=== PATIENT | male | born 1970 | race Caucasian/White ===

== ENCOUNTER 2022-01-17 11:05 | Emergency (ER) | payer OTHER ==
[2022-01-17 11:27] VITALS: BMI 29.2
[2022-01-17] MEDS ORDERED: ACETAMINOPHEN 500 MG TABLET (FP) PO ONE (11:46)
[2022-01-17] MEDS ORDERED: ACETAMINOPHEN 325 MG TABLET (FP) ONE (11:59)
[2022-01-17] MEDS ORDERED: morphine SULFATE 4 MG/ML VIAL IVPUSH ONE (14:51)
[2022-01-17 15:42] LABS: BASO % 0.7 % (0-2.0); EOS % 0.5 % (0-4.5); HEMATOCRIT 43.6 % (35.4-49); HEMOGLOBIN 14.8 GM/dL (11.7-16.9); LYMPH % 18.3 % (8-40); MCH 30.1 pg (25.7-33.7); MCHC 33.8 g/dl (32.0-35.9); MEAN PLT VOLUME 7.4 fl (7.5-11.1); MONO % 16.8 % (3.8-10.2); NEUT % 63.7 % (42.8-82.8); PLATELET COUNT 265 10^3/uL (134-434); RDW 15.7 % (11.9-15.9); WHITE BLOOD COUNT 4.3 K/mm3 (4.0-10.0)
[2022-01-17 15:49] LABS: INR 1.49 (0.83-1.09); PROTHROMBIN TIME (PATIENT) 17.2 SEC (9.7-13.0)
[2022-01-17 15:52] LABS: ACTIVATED PTT 36.8 SECONDS (25.2-36.5)
[2022-01-17] MEDS ORDERED: PROPOFOL 200 MG/20 ML VIAL IVPUSH ONE ×2 (16:01→19:00)
[2022-01-17] MEDS ORDERED: morphine CARPU-JECT 4 MG/1 ML DISP.SYRIN IVPUSH ONE ×2 (16:02→22:23)
[2022-01-17 16:11] LABS: ALBUMIN 3.1 g/dl (3.4-5.0); CALCIUM 8.3 mg/dL (8.5-10.1)
[2022-01-17 16:14] LABS: CREATININE 0.9 mg/dL (0.55-1.3)
[2022-01-17 16:16] LABS: BILIRUBIN,TOTAL 0.4 mg/dL (0.2-1); TOT PROT 6.5 g/dl (6.4-8.2)
[2022-01-17] MEDS ORDERED: morphine SULFATE 4 MG/ML VIAL ONE ×2 (16:32→22:16)
[2022-01-17] MEDS ORDERED: LACTATED RINGERS SOLUTION 1000 ML INFUS.BAG IV ONE (17:34)
[2022-01-17] MEDS ORDERED: PROPOFOL 20 ML ONE ×2 (18:10→18:49)
[2022-01-17 19:20] VITALS: RESP 20
[2022-01-17 22:09] VITALS: BP 145/85; PULSE 87; TEMP 98.2
== END 2022-01-17 22:15 | disposition short-term general hospital (02) ==
LOC: JER 11:05
PROC: 3E033GC Introduction of Other Therapeutic Substance into Peripheral Vein, Percutaneous Approach (ICD-10-PCS; principal; 2022-01-17)
DX: T84.021A Dislocation of internal left hip prosthesis, initial encounter (principal)
CPT/HCPCS: 36415; 70450-TC; 71045-TC-FY; 72125-TC; 72170-TC-FY; 72192-TC; 73700-TC-RT; 80053; 82550; 84484; 85025; 85610; 85730; 86850; 86900; 86901; 93005; 93010; 99285-25; C9803-CS; U0003; U0005

== ENCOUNTER 2024-04-25 15:00 | Inpatient (IN) | payer OTHER ==
[2024-04-25 15:37] VITALS: BMI 24.5
[2024-04-25] MEDS ORDERED: MAGNESIUM HYDROX 2400MG/30ML ORAL SUSPENSION 30 ML CUP PO PRN (15:51)
[2024-04-25] MEDS ORDERED: AMMONIUM LACTATE 12% LOTION 225 GM BOTTLE TP PRN (15:51)
[2024-04-25] MEDS ORDERED: BISACODYL 5 MG TABLET.DR (FP) PO PRN (15:51)
[2024-04-25] MEDS ORDERED: NALOXONE (NARCAN) HCL 4 MG/0.1 ML SPRAY NS PRN (15:51)
[2024-04-25] MEDS ORDERED: BENZOCAINE/MENTHOL (CHLORASEPTIC ) LOZENGE MM PRN (15:51)
[2024-04-25] MEDS ORDERED: NALOXONE HCL 0.4 MG/ML VIAL IVPUSH PRN (15:51)
[2024-04-25] MEDS ORDERED: BENZONATATE 200 MG CAPSULE PO PRN (15:51)
[2024-04-25] MEDS ORDERED: ACETAMINOPHEN 325 MG TABLET (FP) PO PRN (15:51)
[2024-04-25] MEDS ORDERED: IBUPROFEN 600 MG TABLET (FP) PO PRN (15:51)
[2024-04-25] MEDS ORDERED: LOPERAMIDE HCL 2 MG CAPSULE PO PRN (15:51)
[2024-04-25] MEDS ORDERED: IBUPROFEN 400 MG TABLET (FP) PO PRN (15:51)
[2024-04-25] MEDS ORDERED: P-EPHED 60MG/TRIPROLIDI 2.5MG TABLET PO PRN (15:51)
[2024-04-25] MEDS ORDERED: DOCUSATE SODIUM 100 MG CAPSULE (FP) PO PRN (15:51)
[2024-04-25] MEDS ORDERED: guaiFENesin 600 MG TABLET.ER (FP) PO PRN (15:51)
[2024-04-25] MEDS ORDERED: POLYETHYLENE GLYCOL (HEALTHYLAX) 3350 17 GM PACKET PO PRN (15:51)
[2024-04-25] MEDS: THIAMINE 100 MG TABLET PO SCH (21:37)
[2024-04-25] MEDS: METHOCARBAMOL 500 MG TABLET PO PRN (21:37)
[2024-04-25] MEDS: CEPHALEXIN MONOHYDRATE 500 MG CAPSULE (UD) PO SCH (21:37)
[2024-04-25] MEDS: MELATONIN 5 MG TABLETS PO SCH (21:37)
[2024-04-25] MEDS: ROSUVASTATIN CA 5 MG TABLET PO SCH (22:54)
[2024-04-26] MEDS: methaDONE HCL 40 MG DISPERSABLE TABLET PO SCH (06:27)
[2024-04-26] MEDS ORDERED: DULoxetine HCL 30 MG CAPSULE.DR PO ONE (10:30)
[2024-04-26] MEDS: ARIPiprazole 10 MG TABLET PO SCH (10:31)
[2024-04-26] MEDS: DULoxetine HCL 60 MG CAPSULE.DR PO SCH (10:31)
[2024-04-26] MEDS: PRENATAL VITAMINS W/ FOLIC ACID TABLET (FP) PO SCH (10:32)
[2024-04-26] MEDS: FUROSEMIDE 40 MG TABLET (FP) PO SCH (10:32)
[2024-04-26] MEDS: clonazePAM 0.5 MG ODT TABLETS SL SCH ×2 (11:29→11:32)
[2024-04-26] MEDS: QUEtiapine FUMARATE 25 MG TABLET PO SCH (21:20)
[2024-04-27] MEDS ORDERED: DULoxetine HCL 30 MG CAPSULE.DR PO ONE (09:09)
[2024-04-28] MEDS ORDERED: DULoxetine HCL 30 MG CAPSULE.DR PO ONE ×2 (09:00→20:35)
[2024-04-29] MEDS ORDERED: DULoxetine HCL 30 MG CAPSULE.DR PO ONE ×2 (09:04→20:32)
[2024-04-30] MEDS: MAG HYDROX/AL HYDROX/SIMETH 30 ML UNIT-DOSE CUP PO PRN (09:26)
[2024-04-30] MEDS ORDERED: DULoxetine HCL 30 MG CAPSULE.DR PO ONE (20:50)
[2024-05-01] MEDS ORDERED: DULoxetine HCL 30 MG CAPSULE.DR PO ONE ×2 (08:49→20:21)
[2024-05-02 07:16] VITALS: RESP 17; TEMP 97.7
[2024-05-02 09:13] VITALS: BP 132/78; PULSE 93
[2024-05-02] MEDS ORDERED: DULoxetine HCL 30 MG CAPSULE.DR PO ONE (09:14)
== END 2024-05-02 09:23 | disposition home or self-care (01) | DRG 772 ==
LOC: YASAS 15:00 → Y3E 19:44
PROVIDERS: ADMIT Psychiatry & Neurology Pain Medicine; ATTEND Psychiatry & Neurology Pain Medicine
PROC: HZ42ZZZ Group Counseling for Substance Abuse Treatment, Cognitive-Behavioral (ICD-10-PCS; principal; 2024-04-25)
DX: F14.20 Cocaine dependence, uncomplicated (principal); F13.20 Sedative, hypnotic or anxiolytic dependence, uncomplicated; F11.20 Opioid dependence, uncomplicated; F17.210 Nicotine dependence, cigarettes, uncomplicated; F31.9 Bipolar disorder, unspecified; F41.9 Anxiety disorder, unspecified; J44.9 Chronic obstructive pulmonary disease, unspecified; L03.116 Cellulitis of left lower limb; Z96.642 Presence of left artificial hip joint; Z86.711 Personal history of pulmonary embolism; Z86.718 Personal history of other venous thrombosis and embolism
CPT/HCPCS: 36415; 73590-TC-LT-FY; 73590-TC-RT-FY; 73610-TC-LT-FY; 73610-TC-RT-FY; 73630-TC-LT; 73630-TC-RT-FY; 80053; 80305; 80307; 83735; 83880; 84100; 85025; 85027; 85610; 85651; 85730; 86140; 87040; 87811; 93005; 93010; 93306-TC; 93970-TC; 99285-25; G0378; J0131